=== PATIENT | female | born 1970 | race Caucasian/White ===

== ENCOUNTER 2019-04-24 07:48 | Day surgery (SDC) | payer MEDICAID ==
[2019-04-21 14:35] LABS: BASOPHILS # (AUTO) 0.1 X10'3 (0-0.2); BASOPHILS % (AUTO) 0.8 % (0-1); EOSINOPHILS # (AUTO) 0.1 X10'3 (0-0.9); EOSINOPHILS % (AUTO) 0.9 % (0-6); LYMPHOCYTES # (AUTO) 1.6 X10'3 (1.1-4.8); LYMPHOCYTES % (AUTO) 14.1 % (21-51); MEAN CORPUSCULAR HEMOGLOBIN 30.4 PG (27.0-31.0); MEAN CORPUSCULAR VOLUME 89.6 FL (78-98); MEAN PLATELET VOLUME 8.7 FL (7.4-10.4); MONOCYTES # (AUTO) 0.6 X10'3 (0-0.9); NEUTROPHILS # (AUTO) 8.9 X10'3 (1.8-7.7); NEUTROPHILS % (AUTO) 79.2 % (42-75); PRE OP HEMATOCRIT 39.6 % (35.0-45.0); PRE OP HEMOGLOBIN 13.4 g/dL (12.0-16.0); PRE OP PLATELET COUNT 264 X10'3 (140-440); RED BLOOD COUNT 4.42 X10'6 (4.20-5.60); RED CELL DISTRIBUTION WIDTH 13.5 % (11.5-14.5)
[2019-04-21 14:46] LABS: ALBUMIN 3.6 G/DL (3.4-5.0); ALBUMIN/GLOBULIN RATIO 1.1 (1.1-1.5); ALKALINE PHOSPHATASE 62 IU/L (46-116); BLOOD UREA NITROGEN 15 MG/DL (7-18); BUN/CREATININE RATIO 25.9 (6.6-38.0); CALCIUM 8.5 MG/DL (8.5-10.1); CHLORIDE 107 MMOL/L (99-107); CREATININE 0.58 MG/DL (0.40-0.90); PRE OP ALT 18 U/L (30-65); PRE OP ANION GAP 5 (8-16); PRE OP AST 9 U/L (10-37); PRE OP BILIRUB, TOTAL 0.2 MG/DL (0.0-1.0); PRE OP GLUCOSE 91 MG/DL (70-104); PRE OP POTASSIUM 4.4 MMOL/L (3.4-5.1); PRE OP SODIUM 139 MMOL/L (135-145); TOTAL CARBON DIOXIDE 26.8 MMOL/L (24-32); TOTAL PROTEIN 6.8 G/DL (6.4-8.2); eGFR > 90 ML/MIN
[~2019-04-24] VITALS: Ht 165.1 cm; Wt 78.5 kg
[~2019-04-24 07:48] MED LIST: BIOT300T7; BUPIVAcaine/PF 2.5mg/ml (0.25%) 10ml vial ONE; CALCIUM; CHOL100046 PO; IBUP-1986 PO; LORA10TA61 PO; MULT-955 PO; VITAMIN; VITAMIN B6; fentaNYL/PF 50MCG/1 ML 2ML syringe IV PRN; hydrALAZINE 20mg/ml inj. IV PRN; labetalol 20mg/4ml (5mg/ml) syringe IV PRN; morphine 4 MG/ML inj SYRINge IV PRN; ondansetron/PF 4mg/2ml inj IV PRN; ringers solution, lacted 1,000 ML IV SCH
[2019-04-24] MEDS ORDERED: ceFAZolin 1GM/D5W- ADD-VANTAGE 50 ML IV ONE (08:15)
[2019-04-24] MEDS ORDERED: albuterol 2.5 MG/3 ML nebule NEB ONE (08:15)
[2019-04-24] MEDS ORDERED: ringers solution, lacted 1,000 ML IV SCH ×2 (08:15→09:08)
[2019-04-24] MEDS ORDERED: famotidine 20mg tablet PO ONE (08:15)
[2019-04-24 08:30] VITALS: BP 110/72
[2019-04-24] MEDS ORDERED: hydrALAZINE 20mg/ml inj. IV PRN (09:10)
[2019-04-24] MEDS ORDERED: fentaNYL/PF 50MCG/1 ML 2ML syringe IV PRN ×2 (09:10)
[2019-04-24] MEDS ORDERED: ondansetron/PF 4mg/2ml inj IV PRN (09:10)
[2019-04-24] MEDS ORDERED: labetalol 20mg/4ml (5mg/ml) syringe IV PRN (09:10)
[2019-04-24] MEDS ORDERED: morphine 4 MG/ML inj SYRINge IV PRN ×2 (09:10)
[2019-04-24] MEDS ORDERED: BUPIVAcaine/PF 2.5mg/ml (0.25%) 10ml vial ONE (10:06)
[2019-04-24] MEDS ORDERED: LIDOcaine 0.5% (5mg/ml) 50ml vial ONE (10:10)
[2019-04-24] MEDS ORDERED: fentaNYL/PF 50MCG/1 ML 2ML syringe ONE (10:18)
[2019-04-24] MEDS ORDERED: midazolam 2 mg/2 ml injection ONE (10:18)
[2019-04-24] MEDS ORDERED: propofol inj 20 ML IV ONE (10:34)
[2019-04-24 10:42] VITALS: BP 94/61
--- NOTE | 2019-04-24 10:42 | NUR ---
Received from OR via [facility], accompanied by Anesthesiologist CESAR and report given by Anesthesiolgist. PATIENT WITH 20G PIV IN RIGHT UE RUNNING LR AT 100. MICHELLE TO LEFT HAND. DENIES PAIN. + CAP REFILL. VSS Addendum: 04/24/19 at 1107 by Calixto Barnes RN, RN Amended: Links added.
[2019-04-24 10:52] VITALS: BP 101/63
[2019-04-24 11:02] VITALS: BP 100/67
--- NOTE | 2019-04-24 11:12 | NUR ---
ALL DC CRITERIA HAS BEEN MET. IV TAKEN OUT WITHOUT COMPLICATIONS. ALL INSTRUCTIONS COVERED AND ALL QUESTIONS ANSWERED. DRESSINGS CDI. OUT VIA WHEELCHAIR TO PERSONAL VEHICLE WHERE PATIENT WAS SECURED IN AND DRIVEN HOME BY FAMILY. MOTHER DROVE PATIENT HOME. Addendum: 04/24/19 at 1132 by Calixto Barnes RN, RN Amended: Links added.
== END 2019-04-24 11:12 | disposition home or self-care (01) ==
LOC: PAS 07:48
PROVIDERS: ATTEND Orthopaedic Surgery Hand Surgery
DX: G56.02 Carpal tunnel syndrome, left upper limb (principal); Z98.890 Other specified postprocedural states; Z98.51 Tubal ligation status; F17.210 Nicotine dependence, cigarettes, uncomplicated; Z88.5 Allergy status to narcotic agent; Z79.899 Other long term (current) drug therapy
CPT/HCPCS: 29848; 36415; 80053; 82948; 85025; A6222; J0690; J2001; J2250; J2704; J3010; J3490; A4215; J7120

== ENCOUNTER 2020-11-02 12:47 | Day surgery (SDC) | payer BC ==
[2020-10-26 11:10] LABS: BASOPHILS % (AUTO) 0.5 % (0-1); EOSINOPHILS # (AUTO) 0.1 X10'3 (0-0.9); EOSINOPHILS % (AUTO) 0.9 % (0-6); LYMPHOCYTES # (AUTO) 1.4 X10'3 (1.1-4.8); LYMPHOCYTES % (AUTO) 14.8 % (21-51); MEAN CORPUSCULAR HEMOGLOBIN 29.8 PG (27.0-31.0); MEAN CORPUSCULAR HGB CONC 33.6 g/dL (33.0-36.5); MEAN CORPUSCULAR VOLUME 88.7 FL (78-98); MEAN PLATELET VOLUME 8.8 FL (7.4-10.4); MONOCYTES # (AUTO) 0.4 X10'3 (0-0.9); MONOCYTES % (AUTO) 4.1 % (2-12); NEUTROPHILS # (AUTO) 7.8 X10'3 (1.8-7.7); NEUTROPHILS % (AUTO) 79.7 % (42-75); PRE OP HEMATOCRIT 41.6 % (35.0-45.0); PRE OP PLATELET COUNT 315 X10'3 (140-440); RED BLOOD COUNT 4.69 X10'6 (4.20-5.60); RED CELL DISTRIBUTION WIDTH 13.2 % (11.5-14.5)
[2020-10-26 11:20] LABS: PRE OP PROTIME 10.4 SECONDS (9.0-12.0)
[2020-10-26 11:23] LABS: ALBUMIN/GLOBULIN RATIO 1.2 (1.1-1.5); ALKALINE PHOSPHATASE 74 IU/L (46-116); BLOOD UREA NITROGEN 9 MG/DL (7-18); BUN/CREATININE RATIO 13.6 (6.6-38.0); CALCIUM 8.9 MG/DL (8.5-10.1); CHLORIDE 103 MMOL/L (99-107); CREATININE 0.66 MG/DL (0.40-0.90); PRE OP ALT 20 U/L (30-65); PRE OP ANION GAP 9 (8-16); PRE OP AST 11 U/L (10-37); PRE OP BILIRUB, TOTAL 0.4 MG/DL (0.0-1.0); PRE OP GLUCOSE 93 MG/DL (70-104); PRE OP SODIUM 140 MMOL/L (135-145); TOTAL CARBON DIOXIDE 28.5 MMOL/L (24-32); TOTAL PROTEIN 7.4 G/DL (6.4-8.2); eGFR > 90 ML/MIN
[~2020-11-02] VITALS: Ht 165.1 cm; Wt 76.1 kg
[2020-11-02] VITALS (7 sets, daily range): BP systolic 111–152; BP diastolic 74–85
[~2020-11-02 12:47] MED LIST changes: -BIOT300T7; -BUPIVAcaine/PF 2.5mg/ml (0.25%) 10ml vial ONE; -CALCIUM; -CHOL100046 PO; +CLAR500T9 PO; -IBUP-1986 PO; -LORA10TA61 PO; -MULT-955 PO; +TYL650S PO; -VITAMIN; -VITAMIN B6; +albuterol 2.5 MG/3 ML nebule NEB ONE; +famotidine 20mg tablet PO ONE; -fentaNYL/PF 50MCG/1 ML 2ML syringe IV PRN; -hydrALAZINE 20mg/ml inj. IV PRN; -labetalol 20mg/4ml (5mg/ml) syringe IV PRN; -morphine 4 MG/ML inj SYRINge IV PRN; -ondansetron/PF 4mg/2ml inj IV PRN; +oxymetazoline 15 ML nasal spray NS ONE
[2020-11-02] MEDS ORDERED: methylPREDNISolone acetate 80mg/ml inj**IM only ONE (12:57)
[2020-11-02] MEDS ORDERED: LIDOcaine 1% W/epiNEPHrine 1:100,000 20ml vial ONE (12:57)
[2020-11-02] MEDS ORDERED: mupirocin 2% ointment 22GM ONE (12:57)
[2020-11-02] MEDS ORDERED: oxymetazoline 15 ML nasal spray NS ONE (12:57)
[2020-11-02] MEDS ORDERED: cefTAZidime 1gm inj ONE (12:57)
[2020-11-02] MEDS ORDERED: cocaine 4% topical solution 4ml bottle ONE (12:58)
[2020-11-02] MEDS: oxymetazoline 15 ML nasal spray NS ONE ×2 (13:43→15:01)
--- NOTE | 2020-11-02 13:43 | NUR ---
[facility] WILL NOT SCAN ON AFRIN SPRAY, PHARMACY AWARE
[2020-11-02] MEDS ORDERED: fentaNYL/PF 50MCG/1 ML 2ML syringe ONE ×2 (13:47→14:52)
[2020-11-02] MEDS ORDERED: midazolam 1 mg/ML 2ml injection ONE (13:47)
[2020-11-02] MEDS ORDERED: LIDOcaine 1% (10mg/ml) 2ml vial ONE (13:50)
[2020-11-02] MEDS ORDERED: meperidine/PF 25mg/ml syringe IV PRN ×2 (14:40)
[2020-11-02] MEDS ORDERED: ondansetron/PF 4mg/2ml inj IV PRN (14:40)
[2020-11-02] MEDS ORDERED: ringers solution, lacted 1,000 ML IV SCH (14:40)
[2020-11-02] MEDS ORDERED: morphine 4 MG/ML inj SYRINge IV PRN (14:40)
[2020-11-02] MEDS ORDERED: proCHLORperazine 10 MG/2 ml inj IV PRN (14:40)
[2020-11-02] MEDS ORDERED: morphine 2 MG/ML inj. syringe IV PRN (14:40)
[2020-11-02] MEDS ORDERED: propofol inj 20 ML IV ONE (15:35)
[2020-11-02] MEDS ORDERED: ondansetron/PF 4mg/2ml inj ONE (15:35)
[2020-11-02] MEDS ORDERED: meperidine/PF 25mg/ml syringe ONE (15:35)
[2020-11-02] MEDS ORDERED: LIDOcaine 2% (20mg/ml) 5ml vial ONE (15:35)
[2020-11-02] MEDS ORDERED: dexamethasone sod phosphate 4mg/ml inj. ONE (15:35)
--- NOTE | 2020-11-02 15:56 | NUR ---
Received from OR via , accompanied by Anesthesiologist DR GUERRERO and report given by Anesthesiolgist. AWAKENS TO VOICE. VITALS STABLE. DRESSINGS DI. C/O FACIAL BURNNING PAIN. WILL MEDICATE.
[2020-11-02] MEDS: meperidine/PF 25mg/ml syringe IV PRN ×2 (16:05→16:22)
[2020-11-02] MEDS ORDERED: labetalol 20mg/4ml (5mg/ml) syringe IV ONE (16:05)
[2020-11-02] MEDS ORDERED: salt irrigation nasal spray 45 ML SPRAY NS SCH (16:20)
[2020-11-02] MEDS ORDERED: mupirocin 2% ointment 22GM NS SCH (16:21)
--- NOTE | 2020-11-02 17:06 | NUR ---
AWAKE AND ORIENTED. VITALS STABLE. DRESSING DI. STATES PAIN IMPROVING. HOME WITH HER DAUGHTER AT THIS TIME.
== END 2020-11-02 17:06 | disposition home or self-care (01) ==
LOC: PAS 12:47
PROVIDERS: ATTEND Otolaryngology
DX: J34.2 Deviated nasal septum (principal); J34.3 Hypertrophy of nasal turbinates; J32.8 Other chronic sinusitis; F17.210 Nicotine dependence, cigarettes, uncomplicated; Z20.822 Contact with and (suspected) exposure to COVID-19; Z79.899 Other long term (current) drug therapy; Z79.01 Long term (current) use of anticoagulants; Z98.890 Other specified postprocedural states; Z88.5 Allergy status to narcotic agent
CPT/HCPCS: 30140; 30520; 31255; 31267; 36415; 61782; 70486; 80053; 82948; 85025; 85576; 85610; 85730; 87070; 87075; 87102; 87426; 94640; C9250; J0713; J1040; J1100; J2001; J2175; J2250; J2405; J2704; J3010; J7040; J7120; U0003; A4618; A7000